=== PATIENT | male | born 1995 | race Asian ===

== ENCOUNTER → 2017-04-12 02:33 | Emergency (ER) | payer OTHER ==
[2017-04-12 03:02] LABS: Hematocrit 43 % (42-52); Hemoglobin 14.3 g/dl (14.0-18.0); Mean Corpuscular HGB Conc 34 g/dl (31-36); Mean Corpuscular Hemoglobin 30 pg (27-31); Mean Corpuscular Volume 89 fL (80-94); Mean Platelet Volume 8 um3 (7.4-10.4); Red Blood Count 4.76 10^6/ul (4.0-5.4); Red Cell Distribution Width 13 % (10.5-15); White Blood Count 6.4 10^3/ul (3.5-10.8)
[2017-04-12 03:15] LABS: Albumin 4.7 g/dL (3.2-5.2); BUN/Creatinine Ratio 26.6 (8-20); Calcium 8.7 mg/dL (8.6-10.3); EGFR African American 131.6 (>60); EGFR Non-African American 102.3 (>60); Globulin 2.3 g/dL (2-4); Potassium 3.2 mmol/L (3.5-5.0); Total Bilirubin 0.5 mg/dL (0.2-1.0)
--- NOTE | 2017-04-12 06:42 | ED ---
Arlette Walker SooYoung, scribed for Gómez Grove MD on 04/12/17 at 0237 . Substance Abuse/Use - HPI Summary HPI Summary: LEVEL 5 CAVEAT - ETOH INTOXICATION, UNRESPONSIVE A 22 y/o M BIBTracie presents to ED with ETOH intoxication. Pt has been vomiting. - History Of Current Complaint Chief Complaint: EDSubstanceAbuse Stated Complaint: ALCOHOL CONSUMPTION PMH/Surg Hx/FS Hx/Imm Hx Previously Healthy: No - LEVEL 5 CAVEAT - ETOH INTOXICATION, UNRESPONSIVE - Family History Family History: LEVEL 5 CAVEAT - ETOH INTOXICATION, UNRESPONSIVE - Social History Occupation: Student Review of Systems - ROS Summary Review of Systems Summary: LEVEL 5 CAVEAT - ETOH INTOXICATION, UNRESPONSIVE Positive: Vomiting All Other Systems Reviewed And Are Negative: No Physical Exam - Summary Physical Exam Summary: The patient is well-nourished in no acute distress and in no acute pain. The skin is warm and dry and skin color reflects adequate perfusion. HEENT: The head is normocephalic and atraumatic. L pupil is equal and reactive. Nares are patent and without drainage. Mouth reveals moist mucous membranes and the throat is without erythema and exudate. The external ears are intact. The L ear canal is patent and without drainage. The L tympanic membrane are intact. Neck is supple with full range of motion and non-tender. There are no carotid bruits. There is no neck vein distension. Respiratory: Chest is non-tender. Lungs are clear to auscultation and breath sounds are symmetrical and equal. Cardiovascular: Heart is regular rate and rhythm. There is no murmur or rub auscultated. There is no peripheral edema and pulses are symmetrical and equal. Abdomen: The abdomen is soft and non-tender. There are normal bowel sounds heard in all four quadrants. Musculoskeletal: Extremities are non-tender with full range of motion. There is good capillary refill. There is no peripheral edema. Neurological: The patient has symmetrical motor strength in all four extremities. Cranial nerves are grossly intact. Triage Information Reviewed: Yes Vital Signs On Initial Exam: Initial Vitals Temp Pulse Resp BP Pulse Ox 97.3 F 64 18 112/60 95 04/12/17 02:35 04/12/17 02:35 04/12/17 02:35 04/12/17 02:35 04/12/17 02:35 Vital Signs Reviewed: Yes Diagnostics - Vital Signs Vital Signs Temp Pulse Resp BP Pulse Ox 04/12/17 04:30 94/47 04/12/17 04:00 107/54 04/12/17 03:39 69 94 04/12/17 03:30 65 98/51 94 04/12/17 03:00 63 89/45 94 04/12/17 02:42 60 94 04/12/17 02:40 99/57 04/12/17 02:35 97.3 F 64 18 112/60 95 - Laboratory Lab Results: Lab Results 04/12/17 04/12/17 Range/Units 02:50 02:50 WBC 6.4 (3.5-10.8) 10^3/ul RBC 4.76 (4.0-5.4) 10^6/ul Hgb 14.3 (14.0-18.0) g/dl Hct 43 (42-52) % MCV 89 (80-94) fL MCH 30 (27-31) pg MCHC 34 (31-36) g/dl RDW 13 (10.5-15) % Plt Count 249 (150-450) 10^3/ul MPV 8 (7.4-10.4) um3 Neut % (Auto) 54.9 (38-83) % Lymph % (Auto) 32.8 (25-47) % Villalba % (Auto) 6.9 (1-9) % Eos % (Auto) 4.3 (0-6) % Baso % (Auto) 1.1 (0-2) % Absolute Neuts (auto) 3.5 (1.5-7.7) 10^3/ul Absolute Lymphs (auto) 2.1 (1.0-4.8) 10^3/ul Absolute Monos (auto) 0.4 (0-0.8) 10^3/ul Absolute Eos (auto) 0.3 (0-0.6) 10^3/ul Absolute Basos (auto) 0.1 (0-0.2) 10^3/ul Absolute Nucleated RBC 0.01 10^3/ul Nucleated RBC % 0.1 Sodium 140 (133-145) mmol/L Potassium 3.2 L (3.5-5.0) mmol/L Chloride 108 (101-111) mmol/L Carbon Dioxide 23 (22-32) mmol/L Anion Gap 9 (2-11) mmol/L BUN 25 H (6-24) mg/dL Creatinine 0.94 (0.67-1.17) mg/dL Est GFR ( Amer) 131.6 (>60) Est GFR (Non-Af Amer) 102.3 (>60) BUN/Creatinine Ratio 26.6 H (8-20) Glucose 95 (70-100) mg/dL Calcium 8.7 (8.6-10.3) mg/dL Total Bilirubin 0.50 (0.2-1.0) mg/dL AST 33 (13-39) U/L ALT 23 (7-52) U/L Alkaline Phosphatase 39 (34-104) U/L Total Protein 7.0 (6.4-8.9) g/dL Albumin 4.7 (3.2-5.2) g/dL Globulin 2.3 (2-4) g/dL Albumin/Globulin Ratio 2.0 (1-3) Serum Alcohol 286 H (<10) mg/dL Result Diagrams: 04/12/17 02:50 04/12/17 02:50 Lab Statement: Any lab studies that have been ordered have been reviewed, and results considered in the medical decision making process. Re-Evaluation - Re-Evaluation 1 Re-Evaluation Time: 06:26 Change: Unchanged Comment: Pt still asleep, unresponsive. Course/Dx - Diagnoses Provider Diagnoses: Acute alcohol intoxication Discharge - Discharge Plan Condition: Stable Disposition: HOME Patient Education Materials: Abuse of Alcohol (ED) Referrals: [facility] [Primary Care Provider] - Additional Instructions: Follow up at the [facility] in 2 days. The documentation as recorded by the Arltete jones SooYoung accurately reflects the service I personally performed and the decisions made by , Gómez Grove MD.
[2017-04-12 10:34] VITALS: BP 108/62
== END | disposition home or self-care (01) ==
LOC: ED 02:33
DX: F10.129 Alcohol abuse with intoxication, unspecified (principal); Y90.8 Blood alcohol level of 240 mg/100 ml or more; R11.10 Vomiting, unspecified
CPT/HCPCS: 36415; 80053; 80320; 85025; 99282; G0480